=== PATIENT | female | born 1980 | race Caucasian/White ===

== ENCOUNTER 2020-12-25 02:56 | Emergency (ER) | payer OTHER ==
[2020-12-25 04:54] LABS: HEMOGLOBIN 14.6 gm/dl (12.3-15.3); RED BLOOD COUNT 4.7 M/UL (4.00-5.10)
[2020-12-25 05:18] LABS: BUN/CREATININE RATIO 14 (0-10)
[2020-12-25] MEDS ORDERED: VIMPAT200 MG PO (06:12)
[2020-12-25] MEDS ORDERED: PROTONIX40 MG PO (06:12)
== END 2020-12-25 06:30 | disposition home or self-care (01) ==
LOC: ER1 02:56
PROVIDERS: Family Medicine
DX: R56.9 Unspecified convulsions (principal)
CPT/HCPCS: 71046; 80053; 81001; 83690; 84703; 85025; 99284

== ENCOUNTER → 2021-09-05 | Outpatient (CLI) | payer OTHER ==
[~2021-09-05] MED LIST: COLACE 100MG C100 MG PO; NAPROXEN250 MG PO; PERCOCET 5-3251 EACH PO; PROTONIX40 MG PO; VIMPAT100 MG PO; VIMPAT200 MG PO; VIMPAT50 MG PO
[2021-09-05 09:55] LABS: HEMOGLOBIN 12.9 gm/dl (12.3-15.3); RED BLOOD COUNT 4.34 M/UL (4.00-5.10); WHITE BLOOD COUNT 3.7 K/UL (4.5-11.0)
== END ==
LOC: OPSV2 08:00
PROVIDERS: Obstetrics & Gynecology
DX: Z01.818 Encounter for other preprocedural examination (principal); R10.2 Pelvic and perineal pain
CPT/HCPCS: 36415; 81001; 85025; 93005

== ENCOUNTER 2021-09-06 05:30 | Inpatient (IN) | payer OTHER ==
[~2021-09-06] VITALS: Ht 167.6 cm; Wt 65.3 kg
[~2021-09-06 05:30] MED LIST changes: -COLACE 100MG C100 MG PO; -NAPROXEN250 MG PO; -PERCOCET 5-3251 EACH PO
[2021-09-06] MEDS ORDERED: NAPROXEN250 MG PO (12:33)
[2021-09-06] MEDS ORDERED: COLACE 100MG C100 MG PO (12:33)
[2021-09-06] MEDS ORDERED: PERCOCET 5-3251 EACH PO (12:33)
--- NOTE | 2021-09-06 15:37 | NUR ---
NOTIFIED DR SANTOS OF PT C/O PAIN, NOT SALONI PO, ORDER TO NOTIFY DR GUTIERRES, DR GUTIERRES NOTIFIED, NEW ORDERS NOTED FOR MORPHINE, AND PHENERGAN, PT DENIES NAUSEA, JUST NOT ABLE TO EAT R/T PAIN, THEN MD CALLED BACK AND STATES SHE WANTS HER TO START TORADOL AND HOLD NAPROXEN. ORDERS WRITTEN AND SCANNED TO PHARMACY. 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
[2021-09-06 16:53] LABS: HEMOGLOBIN 11.2 gm/dl (12.3-15.3)
--- NOTE | 2021-09-06 18:27 | NUR ---
DR GUTIERRES ROUNDING ON PT
[2021-09-07 04:31] LABS: HEMOGLOBIN 9.8 gm/dl (12.3-15.3)
--- NOTE | 2021-09-07 05:52 | NUR ---
WENT IN AND SPOKE WITH PATIENT VIA TICKER MAINTAINER LINE. ENCOURAGED PATIENT TO AMBULATE TO BEDSIDE CHAIR. ALSO ENCOURAGED PATIENT TO COUGH SHE FEELS LIKE SHE HAS "SOMETHING IN HER THROAT". PATIENT DOES NOT WANT TO COUGH BECAUSE IT HURTS. PILLOW GIVEN TO PLACE OVER ABDOMEN WITH INSTRUCTIONS TO HOLD PILLOW ON ABDOMEN WHILE COUGHING TO EASE PAIN. EDUCATED PATIENT THAT SHE NEEDS TO COUGH IN ORDER TO PREVENT POST-OP PNEUMONIA. PATIENT RELUCTANTLY COUGHING. PATIENT DECLINES TO GET OUT OF BED AT THIS TIME. INSTRUCTED PATIENT THAT SHE CAN REST FOR JUST A LITTLE WHILE LONGER, BUT WHEN BREAKFAST COMES SHE WILL NEED TO GET OUT OF BED AND AMBULATE SO SHE CAN GO HOME. PATIENT VERBALIZES UNDERSTANDING OF INSTRUCTIONS. ALSO ENCOURAGED P.O. HYDRATION. PATIENT VERBALIZES UNDERSTANDING.
--- NOTE | 2021-09-07 19:08 | NUR ---
HAND OFF REPORT GIVEN TO Danna PEARSON RN, CARE RELINQUISHED
--- NOTE | 2021-09-07 20:10 | NUR ---
REPEAT BP BY RN.
--- NOTE | 2021-09-07 20:58 | NUR ---
RN IN ROOM TO CHECK ON PATIENT. PATIENT'S GONE. RN POINTED AT [facility] AND PATIENT SHOOK HEAD NO AGAIN. PATIENT GIVES THUMBS UP.
--- NOTE | 2021-09-08 12:57 | NUR ---
PT SPEAKS [place] EDUCATION GIVE IN [place] PER REQUEST. PT SPEAKS THIA. CAREGIVER AND VERBAL COMMUNICATOR REQUEST TO NOT USE LANGUAGE SCREEN, PT REFUSED TO USE. WILL TEACH PATIENT NEW MEDS.
== END 2021-09-08 13:05 | disposition home or self-care (01) | DRG 743 ==
LOC: OR 05:30 → EDSTATUS 07:30 → M/S 07:30 → OB 12:11
PROVIDERS: ADMIT Obstetrics & Gynecology
PROC: 0UB50ZZ Excision of Right Fallopian Tube, Open Approach (ICD-10-PCS; 2021-09-06)
PROC: 0UB00ZZ Excision of Right Ovary, Open Approach (ICD-10-PCS; 2021-09-06)
PROC: 0UB60ZZ Excision of Left Fallopian Tube, Open Approach (ICD-10-PCS; 2021-09-06)
PROC: 0UT90ZL Resection of Uterus, Supracervical, Open Approach (ICD-10-PCS; principal; 2021-09-06 07:30)
DX: D25.9 Leiomyoma of uterus, unspecified (principal); N92.0 Excessive and frequent menstruation with regular cycle; N80.9 Endometriosis, unspecified; R10.2 Pelvic and perineal pain; N64.4 Mastodynia; G40.909 Epilepsy, unspecified, not intractable, without status epilepticus; K21.9 Gastro-esophageal reflux disease without esophagitis; Z82.49 Family history of ischemic heart disease and other diseases of the circulatory system; Z80.3 Family history of malignant neoplasm of breast; Z80.0 Family history of malignant neoplasm of digestive organs; Z79.899 Other long term (current) drug therapy
CPT/HCPCS: 36415; 84703; 85014; 85018; J0690; J1100; J1170; J1885; J2001; J2250; J2270; J2405; J2550; J2704; J2795; J3010